=== PATIENT | male | born 1990 | race Hispanic/Latino ===

== ENCOUNTER 2017-11-30 12:22 | Emergency (ER) | payer OTHER ==
--- NOTE | 2017-11-30 12:59 | EDPHYS ---
Physician Documentation [facility] Name: Tony Herr Jr Age: 27 yrs Sex: Male : 1990 Arrival Date: 11/30/2017 Time: 12:29 Bed 20 Private MD: None, None ED Physician Jeffrey Knight HPI: 11/30 12:54 This 27 yrs old Male presents to ER via Ambulatory with complaints of Abscess. kav 12:54 The patient presents with an abscess of the left elbow, The patient presents with kav cellulitis of the left elbow. Description: The affected area is small, confluent, draining, erythematous, warm. Onset: The symptoms/episode began/occurred acutely, 2 day(s) ago. Possible cause(s): unknown. Associated signs and symptoms: Pertinent positives: drainage, erythema, Pertinent negatives: fever. Severity of symptoms: At their worst the symptoms were moderate, just prior to arrival. The patient has not experienced similar symptoms in the past. The patient has not recently seen a physician. Historical: - Allergies: 12:40 No Known Allergies; ss - PMHx: 12:40 Anxiety; GERD; decreased ROM to L elbow; ss - PSHx: 12:40 L elbow; ss - Immunization history:: Adult Immunizations up to date. - Social history:: Smoking status: Patient/guardian denies using tobacco. - Ebola Screening: : Patient denies exposure to infectious person Patient denies travel to an Ebola-affected area in the 21 days before illness onset. - Family history:: not pertinent. - Hospitalizations: : No recent hospitalization is reported. ROS: 12:56 Constitutional: Negative for fever, chills, and weight loss, Eyes: Negative for injury, kav pain, redness, and discharge, ENT: Negative for injury, pain, and discharge, Neck: Negative for injury, pain, and swelling, Cardiovascular: Negative for chest pain, palpitations, and edema, Respiratory: Negative for shortness of breath, cough, wheezing, and pleuritic chest pain, Abdomen/GI: Negative for abdominal pain, nausea, vomiting, diarrhea, and constipation, Back: Negative for injury and pain, : Negative for injury, bleeding, discharge, and swelling, MS/Extremity: Negative for injury and deformity, Neuro: Negative for headache, weakness, numbness, tingling, and seizure, Psych: Negative for depression, anxiety, suicide ideation, homicidal ideation, and hallucinations, Allergy/Immunology: Negative for hives, rash, and allergies, Endocrine: Negative for neck swelling, polydipsia, polyuria, polyphagia, and marked weight changes, Hematologic/Lymphatic: Negative for swollen nodes, abnormal bleeding, and unusual bruising. 12:56 Skin: Positive for abscess, cellulitis, erythema, of the left elbow. Exam: 12:56 Constitutional: This is a well developed, well nourished patient who is awake, alert, kav and in no acute distress. Head/Face: Normocephalic, atraumatic. Eyes: Pupils equal round and reactive to light, extra-ocular motions intact. Lids and lashes normal. Conjunctiva and sclera are non-icteric and not injected. Cornea within normal limits. Periorbital areas with no swelling, redness, or edema. ENT: Nares patent. No nasal discharge, no septal abnormalities noted. Tympanic membranes are normal and external auditory canals are clear. Oropharynx with no redness, swelling, or masses, exudates, or evidence of obstruction, uvula midline. Mucous membranes moist. Neck: Trachea midline, no thyromegaly or masses palpated, and no cervical lymphadenopathy. Supple, full range of motion without nuchal rigidity, or vertebral point tenderness. No Meningismus. Chest/axilla: Normal chest wall appearance and motion. Nontender with no deformity. No lesions are appreciated. Cardiovascular: Regular rate and rhythm with a normal S1 and S2. No gallops, murmurs, or rubs. Normal PMI, no JVD. No pulse deficits. Respiratory: Lungs have equal breath sounds bilaterally, clear to auscultation and percussion. No rales, rhonchi or wheezes noted. No increased work of breathing, no retractions or nasal flaring. Abdomen/GI: Soft, non-tender, with normal bowel sounds. No distension or tympany. No guarding or rebound. No evidence of tenderness throughout. Back: No spinal tenderness. No costovertebral tenderness. Full range of motion. MS/ Extremity: Pulses equal, no cyanosis. Neurovascular intact. Full, normal range of motion. Neuro: Awake and alert, GCS 15, oriented to person, place, time, and situation. Cranial nerves II-XII grossly intact. Motor strength 5/5 in all extremities. Sensory grossly intact. Cerebellar exam normal. Normal gait. Psych: Awake, alert, with orientation to person, place and time. Behavior, mood, and affect are within normal limits. 12:56 Skin: abscess, that is moderate sized, approximately 1.5 cm(s), cellulitis, that is mild, on the left elbow, Draining pustular material. Vital Signs: 12:40 BP 145 / 80; Pulse 72; Resp 16; Temp 98.4(O); Pulse Ox 98% on R/A; Weight 62.6 kg; ss Height 5 ft. 4 in. (162.56 cm); Pain 0/10; 12:40 Body Mass Index 23.69 (62.60 kg, 162.56 cm) ss MDM: 12:34 Medical screening is not applicable. kav 12:56 Differential diagnosis: abscess, cellulitis. Data reviewed: vital signs, nurses notes. kav Administered Medications: No medications were administered Disposition: 15:34 Co-signature as Attending Physician, Jeffrey Knight MD I agree with the assessment and kdr plan of care. Disposition: 11/30/17 12:59 Discharged to Home. Impression: Abscess of bursa, left elbow, Cellulitis of left upper limb. - Condition is Stable. - Discharge Instructions: Skin Abscess, [id number], Cellulitis, Adult, Ksst-mo-[id number]. - Prescriptions for Doxycycline Hyclate 100 mg Oral Tablet - take 1 tablet by ORAL route every 12 hours; 20 tablet. Bactrim DS 800- 160 mg Oral Tablet - take 1 tablet by ORAL route every 12 hours for 10 days; 20 tablet. - Medication Reconciliation Form, Thank You Letter, Antibiotic Education, Prescription Opioid Use form. - Follow up: Private Physician; When: 2 - 3 days; Reason: Recheck today's complaints, Continuance of care, Re-evaluation by your physician. - Problem is new. - Symptoms are unchanged. Signatures: Karen Powell RN RN aj1 Jeffrey Knight MD MD kdr Vern, Katherine, DIVIDING MACHINE OPERATOR DIVIDING MACHINE OPERATOR Clover Pena RN RN ss Corrections: (The following items were deleted from the chart) 13:09 12:59 11/30/2017 12:59 Discharged to Home. Impression: Abscess of bursa, left elbow; aj1 Cellulitis of left upper limb. Condition is Stable. Forms are Medication Reconciliation Form, Thank You Letter, Antibiotic Education, Prescription Opioid Use. Follow up: Private Physician; When: 2 - 3 days; Reason: Recheck today's complaints, Continuance of care, Re-evaluation by your physician. Problem is new. Symptoms are unchanged. [email or web address]
--- NOTE | 2017-11-30 12:59 | ER ---
Nurse's Notes [facility] Name: Tony Herr Jr Age: 27 yrs Sex: Male : 1990 Arrival Date: 11/30/2017 Time: 12:29 Bed 20 Private MD: None, None Diagnosis: Abscess of bursa, left elbow;Cellulitis of left upper limb Presentation: 11/30 12:38 Presenting complaint: Patient states: swelling, redness and drainage to L elbow that ss began two days ago. Transition of care: patient was not received from another setting of care. Onset of symptoms was November 28, 2017. Risk Assessment: Do you want to hurt yourself or someone else? Patient reports no desire to harm self or others. Initial Sepsis Screen: Does the patient meet any 2 criteria? No. Patient's initial sepsis screen is negative. Does the patient have a suspected source of infection? Yes: Skin breakdown/wound. Care prior to arrival: None. 12:38 Method Of Arrival: Ambulatory ss 12:38 Acuity: EUGENIA 3 ss Historical: - Allergies: 12:40 No Known Allergies; ss - PMHx: 12:40 Anxiety; GERD; decreased ROM to L elbow; ss - PSHx: 12:40 L elbow; ss - Immunization history:: Adult Immunizations up to date. - Social history:: Smoking status: Patient/guardian denies using tobacco. - Ebola Screening: : Patient denies exposure to infectious person Patient denies travel to an Ebola-affected area in the 21 days before illness onset. - Family history:: not pertinent. - Hospitalizations: : No recent hospitalization is reported. Screenin:01 Abuse screen: Denies threats or abuse. Denies injuries from another. Nutritional aj1 screening: No deficits noted. Tuberculosis screening: No symptoms or risk factors identified. Fall Risk None identified. Assessment: 13:01 General: Appears in no apparent distress. comfortable, Behavior is calm, cooperative, aj1 agitated. Pain: Complains of pain in left elbow Pain currently is 3 out of 10 on a pain scale. Neuro: Level of Consciousness is awake, alert, obeys commands. Cardiovascular: Patient's skin is warm and dry. Respiratory: Airway is patent Respiratory effort is even, unlabored, Respiratory pattern is regular, symmetrical. GI: No signs and/or symptoms were reported involving the gastrointestinal system. : No signs and/or symptoms were reported regarding the genitourinary system. EENT: No signs and/or symptoms were reported regarding the EENT system. Derm: redness and swelling noted to left elbow. Musculoskeletal: No signs and/or symptoms reported regarding the musculoskeletal system. Circulation, motion, and sensation intact. Vital Signs: 12:40 BP 145 / 80; Pulse 72; Resp 16; Temp 98.4(O); Pulse Ox 98% on R/A; Weight 62.6 kg; ss Height 5 ft. 4 in. (162.56 cm); Pain 0/10; 12:40 Body Mass Index 23.69 (62.60 kg, 162.56 cm) ED Course: 12:29 Patient arrived in ED. mr 12:29 None, None is Private Physician. mr 12:34 [facility] ka 12:34 Jeffrey Knight MD is Attending Physician. ka 12:39 Triage completed. ss 12:40 Arm band placed on right wrist. 12:46 Karen Powell, ALEXANDRE is Primary Nurse. aj1 13:01 Patient has correct armband on for positive identification. Bed in low position. Call aj1 light in reach. 13:01 No provider procedures requiring assistance completed. Patient did not have IV access aj during this emergency room visit. Administered Medications: No medications were administered Outcome: 12:59 Discharge ordered by . kav 13:08 Discharged to home ambulatory. aj1 13:08 Condition: good 13:08 Discharge instructions given to patient, Instructed on discharge instructions, follow up and referral plans. medication usage, Demonstrated understanding of instructions, follow-up care, medications, Prescriptions given X 2. 13:09 Patient left the ED. aj1 Signatures: Karen Powell, RN RN aj Rhianna Rubio FNP FNP kav Rivera, Maria mr Smirch, Shelby, RN RN
== END 2017-11-30 13:09 | disposition home or self-care (01) ==
LOC: ER 12:22
DX: M71.022 Abscess of bursa, left elbow (principal); L03.114 Cellulitis of left upper limb
CPT/HCPCS: 99282

== ENCOUNTER 2018-03-09 14:08 | Emergency (ER) | payer OTHER ==
[2018-03-09] MEDS ORDERED: TETANUS & DIPHTHERIA TOX,ADULT 0.5 ML VIAL ONE (15:00)
--- NOTE | 2018-03-09 15:44 | RAD REPORT ---
EXAM DESCRIPTION: RAD - Elbow Left 3 View - 03/09/2018 3:36 pm CLINICAL HISTORY: Left elbow pain FINDINGS: No fracture or dislocation is seen.Patient is unable to completely extend the elbow. Soft tissue swelling is seen. No bony destructive lesion is visualized
[2018-03-09 15:46] LABS: Absolute Lymphocytes (CBC) 2.2 K/uL (0.7-4.9); Absolute Monocytes 0.7 K/uL (0.1-1.3); Absolute Neutrophil 6.5 K/uL (1.8-8.0); Basophils % 0.3 % (0-1.3); Eosinophils % 1.2 % (0-4.4); Lymphocytes % 22.8 % (15.3-44.8); MCH 31.4 pg (27.0-35.0); MCV 89.8 fL (80-100); MPV 6.9 fL (7.6-11.3); Monocytes % 7.3 % (3.3-12.3); RBC Red Blood Cell Count 5.12 M/uL (4.33-5.43)
[2018-03-09 16:00] LABS: BUN Blood Urea Nitrogen 13 mg/dL (7-18); Bicarbonate 30 mmol/L (21-32); Glucose Level 93 mg/dL (74-106); Potassium 3.7 mmol/L (3.5-5.1); Sodium Level 136 mmol/L (136-145)
--- NOTE | 2018-03-09 16:31 | ER ---
Nurse's Notes [facility] Name: Tony Herr Jr Age: 27 yrs Sex: Male : 1990 Arrival Date: 03/09/2018 Time: 14:10 Bed 19 Private MD: Diagnosis: Cellulitis of left upper limb;Cutaneous abscess of left upper limb Presentation: 03/09 14:15 Presenting complaint: Patient states: Abscess to right elbow for the past 3 days, aj1 states that he tried to pop it but he wasn't able to. Denies fever. Transition of care: patient was not received from another setting of care. Onset of symptoms was March 06, 2018. Risk Assessment: Do you want to hurt yourself or someone else? Patient reports no desire to harm self or others. Initial Sepsis Screen: Does the patient meet any 2 criteria? No. Patient's initial sepsis screen is negative. Does the patient have a suspected source of infection? No. Patient's initial sepsis screen is negative. Care prior to arrival: None. 14:15 Method Of Arrival: Ambulatory [facility] 14:15 Acuity: EUGENIA 4 aj1 Triage Assessment: 14:17 General: Appears in no apparent distress. comfortable, Behavior is calm, cooperative, aj1 appropriate for age. Pain: Denies pain. Neuro: Level of Consciousness is awake, alert, obeys commands. Cardiovascular: Patient's skin is warm and dry. Respiratory: Airway is patent Respiratory effort is even, unlabored, Respiratory pattern is regular, symmetrical. Historical: - Allergies: 14:17 No Known Allergies; aj1 - Home Meds: 14:17 None [Active]; aj1 - PMHx: 14:17 Anxiety; GERD; aj1 - PSHx: 14:17 I\T\D x2; aj1 - Immunization history:: Flu vaccine is not up to date. - Social history:: Smoking status: Patient/guardian denies using tobacco. - Ebola Screening: : Patient denies travel to an Ebola-affected area in the 21 days before illness onset. Screenin:40 Abuse screen: Denies threats or abuse. Nutritional screening: No deficits noted. em Tuberculosis screening: No symptoms or risk factors identified. Fall Risk None identified. Assessment: 14:40 General: Appears in no apparent distress. comfortable, Behavior is calm, cooperative. em Pain: Denies pain. Neuro: Level of Consciousness is awake, alert, obeys commands, Oriented to person, place, time, situation. Cardiovascular: Capillary refill < 3 seconds Patient's skin is warm and dry. Respiratory: Airway is patent Respiratory effort is even, unlabored, Respiratory pattern is regular, symmetrical. GI: Abdomen is flat. : No signs and/or symptoms were reported regarding the genitourinary system. EENT: No signs and/or symptoms were reported regarding the EENT system. Derm: Wound noted left elbow Abscess located on left elbow is quarter sized, has purulent drainage, is hot to touch, is red. 14:45 Reassessment: I agree with previous assessment. hb 15:00 Reassessment: Patient appears in no apparent distress at this time. Patient and/or em family updated on plan of care and expected duration. Pain level reassessed. Patient is alert, oriented x 3, equal unlabored respirations, skin warm/dry/pink. 16:42 Reassessment: Patient appears in no apparent distress at this time. Patient and/or em family updated on plan of care and expected duration. Pain level reassessed. Patient is alert, oriented x 3, equal unlabored respirations, skin warm/dry/pink. Patient denies pain at this time. 16:43 Reassessment: pending completion of IV abx to be discharged. em 17:25 Reassessment: Patient appears in no apparent distress at this time. Patient and/or em family updated on plan of care and expected duration. Pain level reassessed. Patient is alert, oriented x 3, equal unlabored respirations, skin warm/dry/pink. Patient denies pain at this time. Vital Signs: 14:17 BP 123 / 90; Pulse 90; Resp 18; Temp 98.0; Pulse Ox 98% on R/A; Weight 61.23 kg (R); aj1 Height 5 ft. 4 in. (162.56 cm) (R); Pain 0/10; 15:00 BP 121 / 87; Pulse 87; Resp 18; Pulse Ox 99% on R/A; em 16:42 BP 113 / 86; Pulse 67; Resp 16; Pulse Ox 96% on R/A; Pain 0/10; em 17:25 BP 119 / 83; Pulse 77; Resp 18; Pulse Ox 98% on R/A; Pain 0/10; em 14:17 Body Mass Index 23.17 (61.23 kg, 162.56 cm) aj1 ED Course: 14:10 Patient arrived in ED. as 14:16 Triage completed. aj1 14:17 Arm band placed on Patient placed in an exam room. aj1 14:18 Omer Villela NP is PHCP. pm1 14:18 Oscar Davis MD is Attending Physician. pm1 14:20 Jake Lang LVN is Primary Nurse. em 14:40 Patient has correct armband on for positive identification. Bed in low position. Call em light in reach. 15:00 Initial lab(s) drawn, by me, sent to lab. Inserted saline lock: 20 gauge in right em antecubital area, using aseptic technique. Blood collected. 15:00 First set of blood cultures drawn by me. em 15:34 X-ray completed. Portable x-ray completed in exam room. Patient tolerated procedure ml well. 15:36 Elbow Left 3 View XRAY In Process Unspecified. EDMS 17:26 No provider procedures requiring assistance completed. IV discontinued, intact, em bleeding controlled, No redness/swelling at site. Pressure dressing applied. Administered Medications: 14:57 Drug: Tetanus-Diphtheria Toxoid Adult 0.5 ml {Telesales Team Leader: Sprinkle. Exp: 02/02/2020. Lot #: [id number]. } Route: IM; Site: left deltoid; 15:29 Follow up: Response: No adverse reaction em 16:34 Not Given (Physician Discretion): Bactrim - Trimethoprim-Sulfamethoxazole (40mg - 200mg pm1 / 5mL) 1 tsp PO once 16:41 Drug: Clindamycin 900 mg Route: IVPB; Infused Over: 30 mins; Site: right antecubital; em 17:10 Follow up: Response: No adverse reaction; IV Status: Completed infusion; IV Intake: 50mlem 16:41 Drug: Bactrim (160 mg-800 mg (DS) 1 tablet Route: PO; em 17:10 Follow up: Response: No adverse reaction em Intake: 17:10 IV: 50ml; Total: 50ml. em Outcome: 16:30 Discharge ordered by MD. pm1 17:26 Discharged to home ambulatory. em 17:26 Condition: good 17:26 Discharge instructions given to patient, Instructed on discharge instructions, follow up and referral plans. medication usage, Demonstrated understanding of instructions, follow-up care, medications, Prescriptions given X 2. 17:27 Patient left the ED. em Signatures: Dispatcher [employer] Pilar Payne, ALEXANDRE RN Karen Denton RN RN aj1 Jake Lang, NON DESTRUCTIVE TESTING INSPECTOR NON DESTRUCTIVE TESTING INSPECTOR em Damian, Deya Carter Patrick, PACKING AND SHIPPING CLERK PACKING AND SHIPPING CLERK pm1 Rachna Toledo RN RN hb
--- NOTE | 2018-03-09 16:31 | EDPHYS ---
Physician Documentation [facility] Name: Tony Herr Jr Age: 27 yrs Sex: Male : 1990 Arrival Date: 03/09/2018 Time: 14:10 Bed 19 Private MD: ED Physician Oscar Davis HPI: 03/09 15:44 This 27 yrs old Male presents to ER via Ambulatory with complaints of Abscess. pm1 15:44 The patient presents with an abscess of the left elbow. Description: draining, swollen. pm1 Onset: The symptoms/episode began/occurred 3 day(s) ago. Possible cause(s): unknown. Associated signs and symptoms: Pertinent positives: discharge, drainage, swelling, Pertinent negatives: fever. Modifying factors: the symptoms are alleviated by nothing, attempted to self mary it but was unable to, the symptoms are aggravated by touching. Severity of symptoms: in the emergency department the symptoms are actually worse. The patient has experienced similar episodes in the past, a few times. The patient has not recently seen a physician. 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 Historical: - Allergies: 14:17 No Known Allergies; aj1 - Home Meds: 14:17 None [Active]; aj1 - PMHx: 14:17 Anxiety; GERD; aj1 - PSHx: 14:17 I\T\D x2; aj1 - Immunization history:: Flu vaccine is not up to date. - Social history:: Smoking status: Patient/guardian denies using tobacco. - Ebola Screening: : Patient denies travel to an Ebola-affected area in the 21 days before illness onset. ROS: 15:44 Constitutional: Negative for fever, chills, and weight loss, Eyes: Negative for injury, pm1 pain, redness, and discharge, ENT: Negative for injury, pain, and discharge, Neck: Negative for injury, pain, and swelling, Cardiovascular: Negative for chest pain, palpitations, and edema, Respiratory: Negative for shortness of breath, cough, wheezing, and pleuritic chest pain, Abdomen/GI: Negative for abdominal pain, nausea, vomiting, diarrhea, and constipation, Back: Negative for injury and pain, : Negative for injury, bleeding, discharge, and swelling. 15:44 MS/extremity: Positive for pain, swelling, of the left elbow. Exam: 15:44 Constitutional: This is a well developed, well nourished patient who is awake, alert, pm1 and in no acute distress. Head/Face: Normocephalic, atraumatic. Eyes: Pupils equal round and reactive to light, extra-ocular motions intact. Lids and lashes normal. Conjunctiva and sclera are non-icteric and not injected. Cornea within normal limits. Periorbital areas with no swelling, redness, or edema. ENT: Nares patent. No nasal discharge, no septal abnormalities noted. Tympanic membranes are normal and external auditory canals are clear. Oropharynx with no redness, swelling, or masses, exudates, or evidence of obstruction, uvula midline. Mucous membranes moist. Neck: Trachea midline, no thyromegaly or masses palpated, and no cervical lymphadenopathy. Supple, full range of motion without nuchal rigidity, or vertebral point tenderness. No Meningismus. Chest/axilla: Normal chest wall appearance and motion. Nontender with no deformity. No lesions are appreciated. Cardiovascular: Regular rate and rhythm with a normal S1 and S2. No gallops, murmurs, or rubs. Normal PMI, no JVD. No pulse deficits. Respiratory: Lungs have equal breath sounds bilaterally, clear to auscultation and percussion. No rales, rhonchi or wheezes noted. No increased work of breathing, no retractions or nasal flaring. Abdomen/GI: Soft, non-tender, with normal bowel sounds. No distension or tympany. No guarding or rebound. No evidence of tenderness throughout. Back: No spinal tenderness. No costovertebral tenderness. Full range of motion. 15:44 Skin: Appearance: normal except for affected area, abscess, that is small, approximately 2 cm(s), of the Dorsal aspect of forearm just distal to left elbow, cellulitis, on the left forearm, almost circumferential just distal to left elbow. 15:44 Neuro: Orientation: is normal, Motor: is normal, moves all fours, Patient's left elbow is contracted. Bent at 90 degrees due to surgical procedure at infancy. Vital Signs: 14:17 BP 123 / 90; Pulse 90; Resp 18; Temp 98.0; Pulse Ox 98% on R/A; Weight 61.23 kg (R); aj1 Height 5 ft. 4 in. (162.56 cm) (R); Pain 0/10; 15:00 BP 121 / 87; Pulse 87; Resp 18; Pulse Ox 99% on R/A; em 16:42 BP 113 / 86; Pulse 67; Resp 16; Pulse Ox 96% on R/A; Pain 0/10; em 17:25 BP 119 / 83; Pulse 77; Resp 18; Pulse Ox 98% on R/A; Pain 0/10; em 14:17 Body Mass Index 23.17 (61.23 kg, 162.56 cm) aj1 MDM: 14:18 Patient medically screened. pm1 16:10 Data reviewed: vital signs. Data interpreted: Pulse oximetry: on room air is 98 %. pm1 Interpretation: normal. Counseling: I had a detailed discussion with the patient and/or guardian regarding: the historical points, exam findings, and any diagnostic results supporting the discharge/admit diagnosis, lab results, radiology results, the need for further work-up and treatment in the hospital. 16:10 Refusal of service: The patient/guardian displays adequate decision making capability pm1 and despite a detailed discussion of alternatives, benefits, risks, and consequences refuses: Admission to the hospital for further work-up and treatment, Patient does not like hospitals and would like to go home. Therefore I will give the patient antibiotics here in the ER and prescribe antibiotics. Educated on return precautions. 03/09 14:50 Order name: CBC with Diff; Complete Time: 16:01 pm1 03/09 14:50 Order name: BMP; Complete Time: 16:01 pm1 03/09 14:50 Order name: Elbow Left 3 View XRAY; Complete Time: 15:52 pm1 03/09 14:55 Order name: Blood Culture Adult (2) pm1 03/09 14:50 Order name: IV Saline Lock; Complete Time: 15:29 pm1 Administered Medications: 14:57 Drug: Tetanus-Diphtheria Toxoid Adult 0.5 ml {[employer] Trimmer: [employer]. Exp: 02/02/2020. Lot #: [id number]. } Route: IM; Site: left deltoid; 15:29 Follow up: Response: No adverse reaction em 16:34 Not Given (Physician Discretion): Bactrim - Trimethoprim-Sulfamethoxazole (40mg - 200mg pm1 / 5mL) 1 tsp PO once 16:41 Drug: Clindamycin 900 mg Route: IVPB; Infused Over: 30 mins; Site: right antecubital; em 17:10 Follow up: Response: No adverse reaction; IV Status: Completed infusion; IV Intake: 50mlem 16:41 Drug: Bactrim (160 mg-800 mg (DS) 1 tablet Route: PO; em 17:10 Follow up: Response: No adverse reaction em Disposition: 17:53 Co-signature as Attending Physician, Oscar Davis MD. rn Disposition: 03/09/18 16:30 Discharged to Home. Impression: Cellulitis of left upper limb, Cutaneous abscess of left upper limb. - Condition is Stable. - Discharge Instructions: Skin Abscess, Cellulitis, Adult. - Prescriptions for Clindamycin HCl 300 mg Oral Capsule - take 1 capsule by ORAL route every 6 hours for 10 days; 40 capsule. Bactrim DS 800- 160 mg Oral Tablet - take 1 tablet by ORAL route every 12 hours for 10 days; 20 tablet. - Work release form, Medication Reconciliation Form, Thank You Letter, Antibiotic Education form. - Follow up: Emergency Department; When: As needed; Reason: Worsening of condition. Follow up: Private Physician; When: 2 - 3 days; Reason: Recheck today's complaints, Continuance of care, Re-evaluation by your physician. - Problem is new. - Symptoms have improved. Signatures: Dispatcher [employer] Pilar Payne RN Karen Mike ch, RN RN aj1 Jake Lang, UPHOLSTERER ASSEMBLY LINE UPHOLSTERER ASSEMBLY LINE em Oscar Davis MD MD rn Marinas, Patrick, RADHA MOLD SHIFTER pm1 Corrections: (The following items were deleted from the chart) 16:30 16:30 03/09/2018 16:30 Discharged to Home. Impression: Cellulitis of left upper limb. pm1 Condition is Stable. Forms are Medication Reconciliation Form, Thank You Letter, Antibiotic Education, Prescription Opioid Use. Follow up: Emergency Department; When: As needed; Reason: Worsening of condition. Follow up: Private Physician; When: 2 - 3 days; Reason: Recheck today's complaints, Continuance of care, Re-evaluation by your physician. Problem is new. Symptoms have improved. pm1 17:27 16:30 03/09/2018 16:30 Discharged to Home. Impression: Cellulitis of left upper limb; em Cutaneous abscess of left upper limb. Condition is Stable. Forms are Medication Reconciliation Form, Thank You Letter, Antibiotic Education, Prescription Opioid Use. Follow up: Emergency Department; When: As needed; Reason: Worsening of condition. Follow up: Private Physician; When: 2 - 3 days; Reason: Recheck today's complaints, Continuance of care, Re-evaluation by your physician. Problem is new. Symptoms have improved. pm1
[2018-03-09] MEDS ORDERED: SMZ./TMP. 800/160 MG TABLET ONE (16:43)
[2018-03-09] MEDS ORDERED: CLINDAMYCIN 900MG/D5W 900 MG/50 ML IVPB IV ONE (16:44)
== END 2018-03-09 17:27 | disposition home or self-care (01) ==
LOC: ER 14:08
DX: L03.114 Cellulitis of left upper limb (principal); Z23 Encounter for immunization
CPT/HCPCS: 36415; 80048; 85025; 87040; 90714; 96365; 99284

== ENCOUNTER 2018-12-21 08:41 | Emergency (ER) | payer OTHER ==
--- NOTE | 2018-12-21 09:38 | RAD REPORT ---
EXAM DESCRIPTION: CT - Head Brain Wo Cont - 12/21/2018 9:15 am CLINICAL HISTORY: Headache COMPARISON: None TECHNIQUE: Computed axial tomography of the head was obtained. IV contrast was not requested. All CT scans are performed using dose optimization technique as appropriate and may include automated exposure control or mA/KV adjustment according to patient size. FINDINGS: An intracranial bleed is not seen . Cerebellar tonsillar ectopia is present The ventricles are normal in caliber. No extra-axial fluid collection is noted. Mild to moderate low-density areas within periventricular, deep and subcortical white matter likely r epresent ischemic changes secondary to small vessel disease. Fluid within the sinuses/ mastoids is not seen. IMPRESSION: Cerebellar tonsillar ectopia No acute intracranial abnormality is seen. If patient's symptoms persist MRI of the brain would be r ecommended.
--- NOTE | 2018-12-21 10:28 | EDPHYS ---
Physician Documentation [facility] Name: Tony Herr Jr Age: 28 yrs Sex: Male : 1990 Arrival Date: 12/21/2018 Time: 08:44 Bed 19 Private MD: ED Physician Oscar Davis HPI: 12/21 09:08 This 28 yrs old Male presents to ER via Ambulatory with complaints of rn Headache, Heat Exposure. 09:08 The patient complains of pain to the top of head and left occipital area. rn 09:09 The patient complains of pain to the . The patient describes the headache as aching. rn Onset: The symptoms/episode began/occurred 1 week(s) ago. Severity of symptoms: At its worst the pain was mild, in the emergency department the pain is unchanged. The symptoms are alleviated by nothing. the symptoms are aggravated by nothing. The patient has experienced similar episodes in the past. The patient has not recently seen a physician. 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 No fever. NO focal neuro problems.. Historical: - Allergies: 09:04 No Known Allergies; iw - Home Meds: 09:04 None [Active]; iw - PMHx: 09:04 Anxiety; GERD; iw - PSHx: 09:04 I\T\D x2; iw - Immunization history:: Adult Immunizations not up to date. - Social history:: Smoking status: Patient/guardian denies using tobacco. - Ebola Screening: : Patient negative for fever greater than or equal to 101.5 degrees Fahrenheit, and additional compatible Ebola Virus Disease symptoms Patient denies exposure to infectious person Patient denies travel to an Ebola-affected area in the 21 days before illness onset No symptoms or risks identified at this time. - Family history:: not pertinent. - Hospitalizations: : No recent hospitalization is reported. ROS: 09:09 Constitutional: Negative for fever, chills, and weight loss, Eyes: Negative for injury, rn pain, redness, and discharge, Neck: Negative for injury, pain, and swelling, Cardiovascular: Negative for chest pain, palpitations, and edema, Respiratory: Negative for shortness of breath, cough, wheezing, and pleuritic chest pain, Abdomen/GI: Negative for abdominal pain, nausea, vomiting, diarrhea, and constipation, MS/Extremity: Negative for injury and deformity, Skin: Negative for injury, rash, and discoloration, Neuro: Negative for weakness, numbness, tingling, and seizure. Exam: 09:09 Constitutional: This is a well developed, well nourished patient who is awake, alert, rn and in no acute distress. Head/Face: Normocephalic, atraumatic. Eyes: Pupils equal round and reactive to light, extra-ocular motions intact. Lids and lashes normal. Conjunctiva and sclera are non-icteric and not injected. Cornea within normal limits. Periorbital areas with no swelling, redness, or edema. ENT: MMM Neck: Trachea midline, no thyromegaly or masses palpated, and no cervical lymphadenopathy. Supple, full range of motion without nuchal rigidity, or vertebral point tenderness. No Meningismus. Skin: Warm, dry with normal turgor. Normal color with no rashes, no lesions, and no evidence of cellulitis. MS/ Extremity: Pulses equal, no cyanosis. Neurovascular intact. Full, normal range of motion. Equal circumference. Neuro: Awake and alert, GCS 15, oriented to person, place, time, and situation. Cranial nerves II-XII grossly intact. Motor strength 5/5 in all extremities. Sensory grossly intact. Cerebellar exam normal. Normal gait. Vital Signs: 09:04 BP 137 / 89; Pulse 80; Resp 16; Temp 98.0; Pulse Ox 100% on R/A; Weight 58.97 kg; iw Height 5 ft. 4 in. (162.56 cm); Pain 5/10; 09:04 Body Mass Index 22.31 (58.97 kg, 162.56 cm) iw [place] Coma Score: 10:22 Eye Response: spontaneous(4). Verbal Response: oriented(5). Motor Response: obeys rn commands(6). Total: 15. MDM: 09:00 Patient medically screened. rn 10:22 Differential diagnosis: hypertensive headache, migraine, tension headache, vasomotor rn headache. Data reviewed: vital signs, nurses notes, radiologic studies, CT scan, and as a result, I will discharge patient. Counseling: I had a detailed discussion with the patient and/or guardian regarding: the historical points, exam findings, and any diagnostic results supporting the discharge/admit diagnosis, radiology results, the need for outpatient follow up, to return to the emergency department if symptoms worsen or persist or if there are any questions or concerns that arise at home. Refusal of service: The patient/guardian displays adequate decision making capability and despite a detailed discussion of alternatives, benefits, risks, and consequences refuses: Medications. Special discussion: I discussed with the patient/guardian in detail that at this point there is no indication for admission to the hospital. It is understood, however, that if the symptoms persist or worsen the patient needs to return immediately for re-evaluation. Special discussion: Based on the history and exam findings, there is no indication for further emergent testing or inpatient evaluation. I discussed with the patient/guardian the need to see the neurologist for further evaluation of the symptoms. I discussed with the patient/guardian the need to see the primary care provider for further evaluation of the symptoms. 12/21 09:08 Order name: CT Head Brain wo Cont; Complete Time: 10:22 rn Administered Medications: No medications were administered Disposition: 12/21/18 10:24 Discharged to Home. Impression: Headache. - Condition is Stable. - Discharge Instructions: General Headache Without Cause, Migraine Headache. - Medication Reconciliation Form, Thank You Letter, Antibiotic Education, Prescription Opioid Use form. - Follow up: Private Physician; When: As needed; Reason: Recheck today's complaints, Re-evaluation by your physician. Follow up: Kaushal Mendoza MD; When: As needed; Reason: Recheck today's complaints, Re-evaluation by your physician. - Problem is new. - Symptoms have improved. Signatures: Dispatcher [employer] EDDC Jake Lang, PRINTMAKER PRINTMAKER Kelsi Orellana RN RN Oscar Nunn MD MD blast furnace helper: (The following items were deleted from the chart) 10:32 10:24 12/21/2018 10:24 Discharged to Home. Impression: Headache. Condition is Stable. rn Forms are Medication Reconciliation Form, Thank You Letter, Antibiotic Education, Prescription Opioid Use. Follow up: Private Physician; When: As needed; Reason: Recheck today's complaints, Re-evaluation by your physician. Problem is new. Symptoms have improved. rn 10:39 10:32 12/21/2018 10:24 Discharged to Home. Impression: Headache. Condition is Stable. em Discharge Instructions: General Headache Without Cause, Migraine Headache. Forms are Medication Reconciliation Form, Thank You Letter, Antibiotic Education, Prescription Opioid Use. Follow up: Private Physician; When: As needed; Reason: Recheck today's complaints, Re-evaluation by your physician. Follow up: Kaushal Mendoza; When: As needed; Reason: Recheck today's complaints, Re-evaluation by your physician. Problem is new. Symptoms have improved. rn
--- NOTE | 2018-12-21 10:28 | ER ---
Nurse's Notes 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 Transition of care: patient was not received from another setting of care. Onset of symptoms was December 14, 2018. Risk Assessment: Do you want to hurt yourself or someone else? Patient reports no desire to harm self or others. Initial Sepsis Screen: Does the patient meet any 2 criteria? No. Patient's initial sepsis screen is negative. Does the patient have a suspected source of infection? No. Patient's initial sepsis screen is negative. Care prior to arrival: None. 09:02 Method Of Arrival: Ambulatory iw 09:02 Acuity: EUGENIA 3 iw Historical: - Allergies: 09:04 No Known Allergies; iw - Home Meds: 09:04 None [Active]; iw - PMHx: 09:04 Anxiety; GERD; iw - PSHx: 09:04 I\\T\\D x2; iw - Immunization history:: Adult Immunizations not up to date. - Social history:: Smoking status: Patient/guardian denies using tobacco. - Ebola Screening: : Patient negative for fever greater than or equal to 101.5 degrees Fahrenheit, and additional compatible Ebola Virus Disease symptoms Patient denies exposure to infectious person Patient denies travel to an Ebola-affected area in the 21 days before illness onset No symptoms or risks identified at this time. - Family history:: not pertinent. - Hospitalizations: : No recent hospitalization is reported. Screenin:18 Abuse screen: Denies threats or abuse. Nutritional screening: No deficits noted. em Tuberculosis screening: No symptoms or risk factors identified. Fall Risk None identified. Assessment: 09:19 General: Appears in no apparent distress. comfortable, Behavior is calm, cooperative, em Denies fever. Pain: Complains of pain in left occipital area and top of head Pain currently is 5 out of 10 on a pain scale. Pain began 1 week ago. Neuro: Level of Consciousness is awake, alert, obeys commands, Oriented to person, place, time, situation, Appropriate for age Denies blurred vision photophobia. Cardiovascular: Capillary refill < 3 seconds Patient's skin is warm and dry. Respiratory: Airway is patent Respiratory effort is even, unlabored, Respiratory pattern is regular, symmetrical. GI: Patient currently denies nausea, vomiting. Derm: Skin is intact, is healthy with good turgor, Skin is pink, warm \\T\\ dry. Musculoskeletal: Capillary refill < 3 seconds, Range of motion: intact in all extremities. 09:25 Reassessment: provider at bedside, currently refused IV and IV meds. reports he will em drink water and take OTC medications. Vital Signs: 09:04 BP 137 / 89; Pulse 80; Resp 16; Temp 98.0; Pulse Ox 100% on R/A; Weight 58.97 kg; iw Height 5 ft. 4 in. (162.56 cm); Pain 5/10; 09:04 Body Mass Index 22.31 (58.97 kg, 162.56 cm) iw [place] Coma Score: 10:22 Eye Response: spontaneous(4). Verbal Response: oriented(5). Motor Response: obeys rn commands(6). Total: 15. ED Course: 08:44 Patient arrived in ED. as 08:59 Jake Lang LVN is Primary Nurse. em 09:00 Oscar Davis MD is Attending Physician. rn 09:04 Triage completed. iw 09:04 Arm band placed on. iw 09:16 CT Head Brain wo Cont In Process Unspecified. EDMS 09:18 Patient has correct armband on for positive identification. Placed in gown. Bed in low em position. Pulse ox on. NIBP on. 10:31 Kaushal Mendoza MD is Referral Physician. rn 10:37 No provider procedures requiring assistance completed. Patient did not have IV access em during this emergency room visit. Administered Medications: No medications were administered Outcome: 10:24 Discharge ordered by MD. rn 10:37 Discharged to home ambulatory. em 10:37 Condition: good 10:37 Discharge instructions given to patient, Instructed on discharge instructions, follow up and referral plans. Demonstrated understanding of instructions, follow-up care. 10:39 Patient left the ED. em Signatures: Dispatcher [employer] Jake Araiza, MARLYN FEED CRUSHER OPERATOR Katarzyna Jeffries Irene, RN RN iw Oscar Davis MD MD rn
== END 2018-12-21 10:39 | disposition home or self-care (01) ==
LOC: ER 08:41
DX: R51 Headache (principal)
CPT/HCPCS: 70450; 99283